=== PATIENT | female | born 1940 | race Caucasian/White ===

== ENCOUNTER 2018-07-27 14:43 | Emergency (ER) | payer MEDICARE, OTHER ==
[2018-07-27] MEDS ORDERED: HYDROmorphone 1 MG/ML Syringe IVPUSH ONE (14:49)
[2018-07-27] MEDS ORDERED: Metoclopramide 10 MG/2 ML SDV IVPUSH ONE (14:49)
--- NOTE | 2018-07-27 14:54 | EDM.PDOC ---
ED HPI GENERAL MEDICAL PROBLEM - General Chief Complaint: Trauma Stated Complaint: [facility] Time Seen by Provider: 07/27/18 14:48 Source of Information: Reports: Patient, EMS History Limitations: Reports: No Limitations - History of Present Illness INITIAL COMMENTS - FREE TEXT/NARRATIVE: 77-year-old female presents the ED per [facility]. Patient states that she tripped over uneven jimmie in her apartment at [facility]. She thus felt to the left side of her body landing hard on her left hip. Of note she has left-sided weakness from previous stroke. She does not wear an AFO splint. She states her left foot and toe will drag at times causing her to trip. Present she did hit her head hard on the end table and she is on Eliquis. There was no loss of consciousness reported. No outward signs of closed head injury is evident and no bleeding. Patient's chief complaint is severe pain in her left hip. Paramedics have given her 50 g of fentanyl en route to the hospital. Still having pain 7 out of 10. She has no pain in her ribs or her back. Onset: Today Onset Date: 07/27/18 Onset Time: 14:20 Duration: Minutes: Location: Reports: Head, Lower Extremity, Left (Left hip and pelvis.) Quality: Reports: Ache Severity: Severe (9 out of 10) Improves with: Reports: Rest Worsens with: Reports: Movement Context: Reports: Trauma (Tripped and fell all over uneven carpeting at home.). Denies: Activity (Any movement of the left hip causes severe pain), Exercise, Lifting, Sick Contact Associated Symptoms: Denies: Confusion, Chest Pain, Cough, cough w sputum, Fever /Chills, Headaches, Loss of Appetite, Malaise, Rash, Seizure, Shortness of Breath, Syncope Treatments DISPLAY DESIGNER OUTSIDE: Reports: Other (see below) Left Hip Pain Score (Numeric/FACES): 10 - Related Data Allergies Allergy/AdvReac Type Severity Reaction Status Date / Time amoxicillin Allergy Itching Verified 07/27/18 14:58 lisinopril Allergy Itching Verified 07/27/18 14:58 Sulfa (Sulfonamide Allergy Itching Verified 07/27/18 14:58 Antibiotics) Home Meds: Home Meds Acetaminophen [Tylenol] 650 mg PO Q6H PRN 07/27/18 [History] Amiodarone [Cordarone] 200 mg PO ASDIRECTED 07/27/18 [History] Apixaban [Eliquis] 5 mg PO BID 07/27/18 [History] Aspirin 325 mg PO DAILY PRN 07/27/18 [History] Denosumab [Prolia] 1 injection INJECT ASDIRECTED 07/27/18 [History] Docusate Sodium 100 mg PO DAILY 07/27/18 [History] FLUoxetine HCl [Fluoxetine HCl] 40 mg PO DAILY 07/27/18 [History] Ibuprofen 400 - 600 mg PO Q4H PRN 07/27/18 [History] Levothyroxine Sodium [Synthroid] 112 mcg PO DAILY 07/27/18 [History] Metoprolol Succinate [Toprol XL] 25 mg PO DAILY 07/27/18 [History] Pantoprazole [ProTONIX] 40 mg PO DAILY 07/27/18 [History] Polyethylene Glycol 3350 [MiraLAX] 17 gm PO DAILY PRN 07/27/18 [History] Rosuvastatin [Crestor] 10 mg PO BEDTIME 07/27/18 [History] diphenhydrAMINE HCl [Unisom] 50 mg PO BEDTIME 07/27/18 [History] hydroCHLOROthiazide [Hydrochlorothiazide] 25 mg PO DAILY 07/27/18 [History] Past Medical History Cardiovascular History: Reports: Arrhythmia, High Cholesterol, Hypertension Gastrointestinal History: Reports: Chronic Constipation Musculoskeletal History: Reports: Osteoarthritis (On Prolia every 6 months.), Osteoporosis Neurological History: Reports: CVA (CVA with residual left-sided hemiparesis in 2008. Randi has been placed on anticoagulants since that time and is currently on Eliquis because of the stroke. Apparently no lesions were identified in the carotid arteries. As far she no she has no history of cardiac arrhythmia.) Endocrine/Metabolic History: Reports: Hypothyroidism (On supplementation.) Social & Family History - Living Situation & Occupation Living situation: Reports: , Extended Care Facility (Currently in assisted living at [facility] home here in [place]) Occupation: Retired Review of Systems - Review of Systems Review Of Systems: See Below (Randi is nonverbal due to severe dementia no useful history is gleaned from the patient.) Constitutional: Denies: Chills, Diaphoresis, Fever, Weakness, Other Eyes: Reports: Glasses, Other (No cataract extractions.). Denies: Drainage, Decreased Acuity Ears: Reports: No Symptoms Nose: Reports: No Symptoms Mouth/Throat: Reports: No Symptoms Respiratory: Reports: No Symptoms Cardiovascular: Reports: No Symptoms GI/Abdominal: Reports: No Symptoms, Other (No previous abdominal surgery) Genitourinary: Reports: Incontinence (Urge and stress components) Musculoskeletal: Reports: Joint Pain (Some knee pain back pain shoulder pain and neck pain at times.), Other (Currently having severe pain left hip since she fell.) Skin: Reports: No Symptoms Neurological: Reports: No Symptoms Psychiatric: Reports: No Symptoms ED EXAM, GENERAL - Physical Exam Exam: See Below Exam Limited By: No Limitations General Appearance: Alert, WD/WN, Moderate Distress (Having severe pain left hip.) Eye Exam: Bilateral Eye: Normal Inspection (No cataract surgery) Throat/Mouth: Normal Inspection, Normal Lips, Normal Oropharynx Head: Atraumatic, Normocephalic, Other Neck: Normal Inspection, Supple (She does have some tenderness along the left parietal scalp and there is no open wounds or hematoma forming. She states this is the side of the head she hit on the end table when she fell.), Non-Tender, Full Range of Motion. No: Lymphadenopathy (L), Lymphadenopathy (R) Respiratory/Chest: Lungs Clear, Normal Breath Sounds, Chest Non-Tender, Respiratory Distress, Decreased Breath Sounds (Mild tachypnea with respiratory rate 20 and sats of 94% on room air. Sounds are diminished the lower 25% of lung baker bilaterally.). No: Rhonchi, Wheezing Cardiovascular: Regular Rate, Rhythm, No Edema, No Gallop, No Murmur, No Rub (55 /m.), Bradycardia Peripheral Pulses: 2+: Posterior Tibial (L) (No pulses palpable in her feet.), Posterior Tibial (R), Dorsalis Pedis (L), Dorsalis Pedis (R) GI/Abdominal: Normal Bowel Sounds, Soft, Non-Tender, No Organomegaly, No Abnormal Bruit, No Mass, Pelvis Stable, Other (No evidence of surgical scars.) Back Exam: Normal Inspection, Full Range of Motion. No: CVA Tenderness (L), CVA Tenderness (R) Extremities: Other (Patient is holding her left hip in flexion at the hip suspicious for dislocation. She does not have a prosthetic hip. Any movement of the hip causes severe pain. Even elevating the right hip causes pain on the left side. There appears to be no injuries to her upper extremities. She can lift both arms above her head without any difficulties.) Neurological: Alert, Oriented, CN II-XII Intact, Other (Not able to move her) Psychiatric: Anxious, Other Skin Exam: Warm, Dry (In a good deal of pain from her left hip injury.), Intact , Normal Color, No Rash EKG INTERPRETATION EKG Date: 07/27/18 Time: 16:17 Rhythm: Other (Occasional PACs. Sinus bradycardia.) Rate (Beats/Min): 58 [place]: Normal P-Wave: Present (First-degree AV block) QRS: Normal ST-T: Other (T-wave flattening one in aVL nonspecific findings) QT: Prolonged (QTC mildly prolonged) EKG Interpretation Comments: Borderline ECG Course - Vital Signs Last Recorded V/S: Last Vital Signs Temp 36.4 C 07/27/18 15:00 Pulse 55 L 07/27/18 15:00 Resp 20 07/27/18 15:00 BP 165/83 H 07/27/18 15:00 Pulse Ox 94 L 07/27/18 15:00 - Orders/Labs/Meds Orders: Active Orders 24 hr Category Date Time Status EKG Documentation Completion [RC] STAT Care 07/27/18 15:55 Active Bernal Catheter Insertion [Insert Urinary Catheter] [OM. Care 07/27/18 16:45 Ordered PC] Q24H Urinary Catheter Assessment [RC] ASDIRECTED Care 07/27/18 16:51 Ordered Chest 1V Frontal [CR] Stat Exams 07/27/18 14:50 Taken Femur Min 2V Lt [CR] Stat Exams 07/27/18 16:51 Ordered Pelvis 1V or 2V [CR] Stat Exams 07/27/18 14:51 Taken PATIENT RETYPE [BBK] Routine Lab 07/27/18 15:05 Received Sodium Chloride 0.9% [Normal Saline] 1,000 ml Med 07/27/18 15:00 Active IV ASDIRECTED Medication Orders Sodium Chloride (Normal Saline) 1,000 mls @ 150 mls/hr IV ASDIRECTED RIVERA Last Admin: 07/27/18 15:02 Dose: 150 mls/hr Labs: Laboratory Tests 07/27/18 07/27/18 07/27/18 Range/Units 15:05 15:05 15:05 WBC 7.55 (3.98-10.04) K/mm3 RBC 4.92 (3.98-5.22) M/mm3 Hgb 14.0 (11.2-15.7) gm/L Hct 41.5 (34.1-44.9) % MCV 84.3 (79.4-94.8) fl MCH 28.5 (25.6-32.2) pg MCHC 33.7 (32.2-35.5) g/dl RDW Std Deviation 40.3 (36.4-46.3) fL Plt Count 319 (182-369) K/mm3 MPV 9.2 L (9.4-12.3) fl Neutrophils % (Manual) 62 H (40-60) % Band Neutrophils % 0 (0-10) % Lymphocytes % (Manual) 30 (20-40) % Atypical Lymphs % 0 % Monocytes % (Manual) 5 (2-10) % Eosinophils % (Manual) 3 (0.7-5.8) % Basophils % (Manual) 0 L (0.1-1.2) Platelet Estimate Adequate RBC Morph Comment Normal PT 10.8 (9.5-12.1) SECONDS INR 0.99 APTT 26 (24-31) SECONDS Sodium 141 (136-145) mEq/L Potassium 3.5 (3.5-5.1) mEq/L Chloride 105 (98-107) mEq/L Carbon Dioxide 26 (21-32) mEq/L Anion Gap 13.5 (5-15) BUN 10 (7-18) mg/dL Creatinine 0.7 (0.55-1.02) mg/dL Est Cr Clr Drug Dosing 70.34 mL/min Estimated GFR (MDRD) > 60 (>60) mL/min BUN/Creatinine Ratio 14.3 (14-18) Glucose 103 (83-115) mg/dL Calcium 8.2 L (8.5-10.1) mg/dL Magnesium 1.6 L (1.8-2.4) mg/dl Total Bilirubin 0.3 (0.2-1.0) mg/dL AST 22 (15-37) U/L ALT 35 (14-59) U/L Alkaline Phosphatase 75 (46-116) U/L NT-Pro-B Natriuret Pep (0-450) pg/mL Total Protein 6.7 (6.4-8.2) g/dl Albumin 3.4 (3.4-5.0) g/dl Globulin 3.3 gm/dL Albumin/Globulin Ratio 1.0 (1-2) Blood Type Gel Antibody Screen 07/27/18 07/27/18 Range/Units 15:05 15:05 WBC (3.98-10.04) K/mm3 RBC (3.98-5.22) M/mm3 Hgb (11.2-15.7) gm/L Hct (34.1-44.9) % MCV (79.4-94.8) fl MCH (25.6-32.2) pg MCHC (32.2-35.5) g/dl RDW Std Deviation (36.4-46.3) fL Plt Count (182-369) K/mm3 MPV (9.4-12.3) fl Neutrophils % (Manual) (40-60) % Band Neutrophils % (0-10) % Lymphocytes % (Manual) (20-40) % Atypical Lymphs % % Monocytes % (Manual) (2-10) % Eosinophils % (Manual) (0.7-5.8) % Basophils % (Manual) (0.1-1.2) Platelet Estimate RBC Morph Comment PT (9.5-12.1) SECONDS INR APTT (24-31) SECONDS Sodium (136-145) mEq/L Potassium (3.5-5.1) mEq/L Chloride (98-107) mEq/L Carbon Dioxide (21-32) mEq/L Anion Gap (5-15) BUN (7-18) mg/dL Creatinine (0.55-1.02) mg/dL Est Cr Clr Drug Dosing mL/min Estimated GFR (MDRD) (>60) mL/min BUN/Creatinine Ratio (14-18) Glucose (83-115) mg/dL Calcium (8.5-10.1) mg/dL Magnesium (1.8-2.4) mg/dl Total Bilirubin (0.2-1.0) mg/dL AST (15-37) U/L ALT (14-59) U/L Alkaline Phosphatase (46-116) U/L NT-Pro-B Natriuret Pep 476 H (0-450) pg/mL Total Protein (6.4-8.2) g/dl Albumin (3.4-5.0) g/dl Globulin gm/dL Albumin/Globulin Ratio (1-2) Blood Type O POSITIVE Gel Antibody Screen Negative Meds: Medications Generic Name Dose Route Start Last Admin Trade Name Sissy PRN Reason Stop Dose Admin Sodium Chloride 1,000 mls @ 150 mls/hr 07/27/18 15:00 07/27/18 15:02 Normal Saline IV 150 mls/hr ASDIRECTED RIVERA Administration Discontinued Medications Generic Name Dose Route Start Last Admin Trade Name Freq PRN Reason Stop Dose Admin Hydromorphone HCl 1 mg 07/27/18 14:49 07/27/18 15:05 Dilaudid IVPUSH 07/27/18 14:50 1 mg ONETIME ONE Administration Hydromorphone HCl 0.5 mg 07/27/18 16:56 Dilaudid IVPUSH 07/27/18 16:57 ONETIME STA Metoclopramide HCl 7.5 mg 07/27/18 14:49 07/27/18 15:03 Reglan IVPUSH 07/27/18 14:50 7.5 mg ONETIME ONE Administration - Radiology Interpretation Free Text/Narrative:: 77-year-old female brought to the ED after tripping and falling in her home at [place] this afternoon. She landed hard on her left hip. Of note she has a left-sided hemiparesis from previous CVA. He'll hit her head on the left side on and in table. She did not lose consciousness. She has no open wounds. Minimal tenderness noted to the parietal scalp. Of note she is on Eliquis for atrial fibrillation. Clinically she is holding her left hip in flexion. This is worrisome for possible fracture dislocation. She is alert and oriented and able to answer all questions appropriately. No other signs of injuries identified to her extremities or back or head. She will have CT head performed as she is likely going to need surgical repair of her hip. Her pelvis left femur. She'll be given Dilaudid 1 mg IV with Reglan 7.5 mg IV for pain relief. Routine labs including coags and type and screen to be done. - Re-Assessments/Exams Free Text/Narrative Re-Assessment/Exam: 07/27/18 17:03 CT of the head reveals a large infarct in the right temporal parietal lobe/basal ganglia compatible with her left-sided hemiparesis. his occurred in 2008. There is some surrounding encephalomalacia around the right lateral ventricle making it look larger than the left. There is also an area of focal atrophy within the left cerebellar hemisphere likely representing an old infarct. Minimal diminished density is noted within the periventricular white matter comparison small vessel ischemic demyelination changes. No intracranial hemorrhage is appreciated no acute parenchymal changes appreciated. Note there is near complete opacification of the right maxillary sinus. Mild mucosal thickening is also seen within the left maxillary sinus as well with some within the ethmoid sinuses. These findings are likely chronic. Chest x-ray reveals no cardiomegaly. There is some peribronchial cuffing on the left side near the hilar area. No nodules are identified. There appears to be some mild vascular congestion. No pleural effusions. X-ray of the left pelvis confirms a intertrochanteric fracture of the left hip. Because she has her femur at 90 flexion the x-ray techs were unable to do the femur. I will assist the patient in getting her leg extended at the hip with slight traction. 07/27/18 17:08 Labs reveal a normal white count at 7.55. Differential 62% neutrophils and no band cells. Hemoglobin is 14.0 with hematocrit of 41.5. Platelet count is 319,000. PT is 10.8 with an INR of 0.99. PTT is 26. Sodium 141 with potassium of 3.5. Chloride is 105 with a bicarbonate of 26. And a gap is normal 13.5. BUN is 10 with a creatinine of 0.7. GFR remains greater than 60. Glucose is 103. Calcium is 8.2. Magnesium slightly low at 1.6. Total bilirubin is 0.3 liver function otherwise normal. BNP is mildly elevated at 476. Total protein is 6.7 with a albumin fraction slightly low at 3.4. Blood type is O+ and antibody screen was negative. I have spoken to the 1 call system at [facility] in [place]. Nurse was able to speak with on-call orthopedic surgeon Dr. Shukla who has accepted care. Patient is to be admitted to the hospital per hospitalist Dr. Arana. Patient will be transported and institution per ground ambulance. Bernal catheter will be placed at this time. She is having increased pain in her left hip since I was able to reduce it to an extended position. Will repeat Dilaudid 0.5 mg IV for pain relief. X-rays of her femur will now be done. Departure - Departure Time of Disposition: 17:13 Disposition: DC/Tfer to Acute Hospital 02 Condition: Fair Clinical Impression: Anticoagulated Intertrochanteric fracture of left hip Qualifiers: Encounter type: initial encounter Fracture type: closed Fracture alignment: displaced Qualified Code(s): S72.142A - Displaced intertrochanteric fracture of left femur, initial encounter for closed fracture - Discharge Information *PRESCRIPTION DRUG MONITORING PROGRAM REVIEWED*: Not Applicable *COPY OF PRESCRIPTION DRUG MONITORING REPORT IN PATIENT DOMENIC: Not Applicable Referrals: Tamiko Quezada NP [Primary Care Provider] - Forms: ED Department Discharge Additional Instructions: Patient transferred to [facility] in [place] [facility] as Dr. Pedraza on-call orthopedic surgeon is leaving [facility] first thing in the morning. She will need to be off her Eliquis for a day or so before surgery can be carried out. Dr. Miller is also not available to provide surgical services this weekend. Patient has been accepted at [facility] in [place] [facility]. - My Orders Last 24 Hours: My Active Orders 07/27/18 14:50 Chest 1V Frontal [CR] Stat 07/27/18 14:51 Pelvis 1V or 2V [CR] Stat 07/27/18 15:00 Sodium Chloride 0.9% [Normal Saline] 1,000 ml IV ASDIRECTED 07/27/18 15:05 PATIENT RETYPE [BBK] Routine 07/27/18 15:55 EKG Documentation Completion [RC] STAT 07/27/18 16:45 Bernal Catheter Insertion [Insert Urinary Catheter] [OM.PC] Q24H 07/27/18 16:51 Urinary Catheter Assessment [RC] ASDIRECTED Femur Min 2V Lt [CR] Stat - Assessment/Plan Last 24 Hours: My Active Orders 07/27/18 14:50 Chest 1V Frontal [CR] Stat 07/27/18 14:51 Pelvis 1V or 2V [CR] Stat 07/27/18 15:00 Sodium Chloride 0.9% [Normal Saline] 1,000 ml IV ASDIRECTED 07/27/18 15:05 PATIENT RETYPE [BBK] Routine 07/27/18 15:55 EKG Documentation Completion [RC] STAT 07/27/18 16:45 Bernal Catheter Insertion [Insert Urinary Catheter] [OM.PC] Q24H 07/27/18 16:51 Urinary Catheter Assessment [RC] ASDIRECTED Femur Min 2V Lt [CR] Stat
[2018-07-27] MEDS ORDERED: Sodium Chloride 0.9% 1,000 ML IV SCH (15:00)
--- NOTE | 2018-07-27 16:04 | CT ---
Head CT Technique: Multiple axial sections through the brain were obtained. Intravenous contrast was not utilized. Comparison: No prior intracranial imaging. Findings: Ventricles along with basal cisterns and sulci over the convexities are mildly prominent. Old infarct is noted within the right basal ganglia extending into the periventricular white matter. Ex-vacuole enlargement of the adjacent lateral ventricle is noted. Focal atrophy also noted within the left cerebellar hemisphere likely representing old infarct. Minimal diminished density is noted within the periventricular white matter compatible with small vessel ischemic demyelination change. No intracranial hemorrhage is seen. No acute parenchymal change is appreciated. Near complete opacification of the right maxillary sinus is noted. Mild mucosal thickening is seen within the left maxillary sinus as well as within the ethmoid sinuses. No acute calvarial abnormality is appreciated. Impression: 1. Sinus findings which are most likely chronic. 2. Old infarcts as noted above. 3. Mild senescent change. 4. No acute intracranial abnormality is appreciated. No skull fracture is seen. Diagnostic code #2
[2018-07-27] MEDS ORDERED: HYDROmorphone 0.5 MG/0.5 ML Syringe IVPUSH STA (16:56)
[2018-07-27] MEDS ORDERED: HYDROmorphone 0.5 MG/0.5 ML Syringe IVPUSH ONE (17:02)
--- NOTE | 2018-07-28 07:06 | CR ---
Pelvis: AP view of the pelvis was obtained. Comparison: No prior pelvis study. Angulated intertrochanteric fracture noted within the left hip. Bony structures are osteopenic. Degenerative change is partially visualized within the lower lumbar spine. No additional abnormality is seen. Impression: 1. Angulated intertrochanteric fracture within the left hip. 2. Other incidental findings. Diagnostic code #3
--- NOTE | 2018-07-28 07:06 | CR ---
Chest: AP view of the chest was obtained. Comparison: No prior chest x-ray. Heart size is normal. Tortuous thoracic aorta is seen. Lungs show nothing acute. Bony structures are osteopenic. Surgical clips seen at the base of the neck. Impression: 1. Incidental findings. Nothing acute is appreciated. Diagnostic code #2
--- NOTE | 2018-07-28 07:14 | CR ---
Left femur: Two views of the left femur were obtained. Comparison: No prior femur exam. Intertrochanteric fracture is noted within the left hip with varus angulation. Incidental joint space narrowing is noted within the knee. Osteoporosis is noted. No other acute abnormality is identified. Impression: 1. Angulated intertrochanteric fracture. 2. Other incidental findings. Diagnostic code #3
== END 2018-07-27 17:50 ==
LOC: SUPCPDRO 14:43 → JD.ED 14:43
DX: S72.142A Displaced intertrochanteric fracture of left femur, initial encounter for closed fracture (principal); I10 Essential (primary) hypertension; E03.9 Hypothyroidism, unspecified; Z88.1 Allergy status to other antibiotic agents; Z88.2 Allergy status to sulfonamides; Z79.899 Other long term (current) drug therapy; Z79.82 Long term (current) use of aspirin; Z79.01 Long term (current) use of anticoagulants; W01.0XXA Fall on same level from slipping, tripping and stumbling without subsequent striking against object, initial encounter
CPT/HCPCS: 36415; 70450; 71045; 72170; 73552; 80053; 83735; 83880; 85007; 85027; 85610; 85730; 86850; 86900; 86901; 93005; 96361; 96374; 96375; 96376; 99285; J1170; J2765; J7040; 93010